=== PATIENT | female | born 1965 | race Caucasian/White ===

== ENCOUNTER → 2019-04-02 | Day surgery (SDC) | payer OTHER ==
--- NOTE | 2019-04-05 10:18 | OP ---
DATE OF OPERATION: 04/02/2019 PREOPERATIVE DIAGNOSIS: Left breast mass 11 o'clock, 9-10 cm from the nipple, and left breast mass axillary tail. POSTOPERATIVE DIAGNOSIS: Left breast mass 11 o'clock, 9-10 cm from the nipple, and left breast mass axillary tail. PROCEDURE: Left breast ultrasound-guided core biopsy x2. ANESTHESIA: Local. ESTIMATED BLOOD LOSS: Minimal. COMPLICATIONS: None. PROCEDURE: Patient was made aware of the risks and benefits of the procedure and consented. She was placed in a supine position. The left breast at the 11 o'clock position was approached first. Under sterile conditions with 1% lidocaine for local anesthesia, a small marquez was made in the skin using a 13-gauge suction biopsy device via lateral approach. Under ultrasound guidance, multiple cores were obtained and submitted to Pathology. Likewise, under ultrasound guidance, a bowtie biopsy clip was placed into the biopsy region. Well tolerated by patient. Steri-Strip and a sterile bandage were applied. The left axillary tail lesion was then approached. Under sterile conditions with 1% lidocaine for local anesthesia, a small marquez was made in the skin. Using a 13-gauge suction biopsy device via inferolateral approach under ultrasound guidance, multiple cores were obtained and submitted to Pathology. Likewise, under ultrasound guidance, a U-shaped clip was placed into the biopsy region. Well tolerated by patient. I will contact her with the results. JOSE LUIS ARMAS M.D. [id number]
--- NOTE | 2019-04-08 10:29 | PATH ---
Surgical Pathology Report Patient Name: WILBER MCDANIEL [facility]. Rec. #: [id number] /Age/Gender: 1965 (Age: 54) / F Account: [id number] Location: [facility] AMBULATORY Taken: 04/02/2019 Received: 04/05/2019 Reported: 04/08/2019 Physicians: Coleman Burton M.D. Specimen(s) Received A: LEFT BREAST CORE BIOPSY 11 N 9-10 B: LEFT BREAST CORE BIOPSY 1:00 AXILLARY TAIL Clinical History Palpable mass Ultrasound findings- highly suspicious/malignant Final Diagnosis A. BREAST, LEFT, 11 N9-10, CORE BIOPSY: INVASIVE DUCTAL CARCINOMA, POORLY DIFFERENTIATED, MEASURING AT LEAST 13 MM IN THIS MATERIAL. B. BREAST, LEFT, 1:00, AXILLARY TAIL, CORE BIOPSY: INVASIVE LOBULAR CARCINOMA, PLEOMORPHIC TYPE, MEASURING AT LEAST 11 MM IN THIS MATERIAL. Comment: Part A, The invasive carcinoma shows strong membranous positivity for E-cadherin and p120, supportive of ductal phenotype. Part B, The invasive carcinoma is positive for MINDY-3, while negative for mammaglobin consistent with mammary origin. E-cadherin is negative supportive of lobular phenotype. Results of ER, GA, Her2 (IHC) & Ki-67 studies pending and will be reported separately. Immunohistochemical stains performed and interpreted at [facility]: E-cadherin (part A). Immunohistochemical stains performed at [place], [place] ([id number]) and interpreted at [facility]: E-cadherin (part B), p120, MINDY-3. Mammaglobin. Positive and negative controls (internal if applicable) show appropriate results. Electronically Signed Marychuy Acharya M.D. Addendum Reported: 04/12/2019 Addendum Diagnosis Part A, Breast Left 11 N9-10 Results of Estrogen Receptor (ER) and Progesterone Receptor (GA) studies performed on block "1" at [facility] are as follows: ER (clone [id number] mouse monoclonal antibody by [employer]): ~99% nuclear staining with strong intensity (Positive). GA (clone16 mouse monoclonal antibody by [employer]): ~35-40% nuclear staining with moderate to strong intensity (Positive). Results of Her2 (IHC) & Ki-67 studies performed on block "1" at [place], [place] ([id number]) are as follows: Her2 IHC (EP3 from [employer], formerly known as [id number], using [place] Polymer Refine detection kit): 0-1+ (Negative). Ki-67: ~25% (Intermediate proliferative index). Part B, Breast Left, 1:00, Axillary tail Results of Estrogen Receptor (ER) and Progesterone Receptor (GA) studies performed on block "2" at [facility] are as follows: ER (clone 6F11 mouse monoclonal antibody by [employer]): ~90% nuclear staining with strong intensity (Positive). GA (clone16 mouse monoclonal antibody by [employer]): 0% nuclear staining (Negative). Results of Her2 (IHC) & Ki-67 studies performed on block "2 " at [place], [place] ([id number]) are as follows: Her2 IHC (EP3 from [employer], formerly known as [id number], using [place] Polymer Refine detection kit): 0 (Negative). Ki-67: ~35% (High proliferative index). Formalin fixation time (approximately 75-76 hrs) exceeds current ASCO/CAP recommendations for ER, GA & Her2 testing (6-72 hrs). Negative results must be interpreted with caution as false negatives may occur. Cold ischemic time is within recommended guidelines. Marychuy Acharya M.D. Gross Description A. Received in formalin labeled "left breast core, 11, N9-10" are 3 arvizu-yellow, cylindrical portions of fibroadipose tissue ranging from 1-1.5 cm in length and averaging 0.2 cm diameter. The specimens are submitted in toto in one cassette. B Received in formalin labeled "left breast core 1:00 on axillary tail" are 8 arvizu-yellow, cylindrical portions of fibroadipose tissue ranging from 0.7-1.5 cm in length and averaging 0.2 cm diameter. The specimens are submitted in toto in one cassette. Time to formalin fixation: <1 minute Total formalin fixation time: Between 75-76 hours. MLSZ/04/05/2019 pradeep04/05/2019
== END | disposition home or self-care (01) ==
LOC: FRADUS-SUR 14:35
PROVIDERS: ATTEND Surgery Surgical Oncology
PROC: 0HBU3ZX Excision of Left Breast, Percutaneous Approach, Diagnostic (ICD-10-PCS; principal; 2019-04-02)
DX: C50.212 Malignant neoplasm of upper-inner quadrant of left female breast (principal); C50.612 Malignant neoplasm of axillary tail of left female breast; N63.22 Unspecified lump in the left breast, upper inner quadrant; N63.32 Unspecified lump in axillary tail of the left breast
CPT/HCPCS: 19083; 19084; 87899; 88305-TC; 88342-TC; A4648

== ENCOUNTER 2019-05-11 09:34 | Day surgery (SDC) | payer OTHER ==
[2019-05-10 12:35] VITALS: BMI 47.2
[2019-05-11] MEDS ORDERED: MIDAZOLAM HCL 2 MG/2 ML SINGLE DOSE VIAL ONE (12:24)
[2019-05-11 14:06] VITALS: TEMP 98.4
[2019-05-11 14:31] VITALS: BP 122/59; PULSE 91
== END 2019-05-11 14:30 | disposition home or self-care (01) ==
LOC: JRADIR 09:34
PROVIDERS: ATTEND Nurse Practitioner Family
PROC: 05HM33Z Insertion of Infusion Device into Right Internal Jugular Vein, Percutaneous Approach (ICD-10-PCS; principal; 2019-05-11)
PROC: B513ZZA Fluoroscopy of Right Jugular Veins, Guidance (ICD-10-PCS; 2019-05-11)
DX: C50.912 Malignant neoplasm of unspecified site of left female breast (principal)
CPT/HCPCS: 36561; 76937; 77001; C1751; C1788

== ENCOUNTER 2019-05-12 07:15 | Day surgery (SDC) | payer OTHER ==
[2019-05-12] MEDS ORDERED: ACETAMINOPHEN 325 MG TABLET (FP) PO ONE (09:30)
[2019-05-12] MEDS ORDERED: DEXAMETHASONE SODIUM PHOSPHATE 20 MG, DIPHENHYDRAMINE 50 MG in SODIUM CHLORIDE 100 ML IVPB ONE (09:30)
[2019-05-12] MEDS ORDERED: FAMOTIDINE 20 MG/50 ML IVPB 20 MG/50 ML MG IVPB ONE (09:30)
[2019-05-12] MEDS ORDERED: PACLITAXEL IVPB ONE (10:00)
[2019-05-12] MEDS ORDERED: SODIUM CHLORIDE IVPB ONE (10:00)
[2019-05-12 10:05] LABS: BASO % 0.4 % (0-2.0); EOS % 2.9 % (0-4.5); HEMATOCRIT 32.6 % (32.4-45.2); HEMOGLOBIN 10.3 GM/dL (10.7-15.3); LYMPH % 17.9 % (8-40); MCHC 31.6 g/dl (32.0-36.0); MEAN CELL VOLUME 59.9 fl (80-96); MEAN PLT VOLUME 8.7 fl (7.5-11.1); MONO % 4.4 % (3.8-10.2); NEUT % 74.4 % (42.8-82.8); PLATELET COUNT 315 K/MM3 (134-434); RBC 5.45 M/mm3 (3.60-5.2); RDW 15.5 % (11.6-15.6); WHITE BLOOD COUNT 9.1 K/mm3 (4.0-10.0)
[2019-05-12 10:06] LABS: MCH 18.9 pg (25.7-33.7)
[2019-05-12 10:30] LABS: ALBUMIN 3.7 g/dl (3.4-5.0); BILIRUBIN,TOTAL 0.6 mg/dL (0.2-1); CALCIUM 8.7 mg/dL (8.5-10.1); CREATININE 0.9 mg/dL (0.55-1.3); MAGNESIUM 2.2 mg/dL (1.8-2.4); POTASSIUM 3.7 mmol/L (3.5-5.1); TOT PROT 7.6 g/dl (6.4-8.2)
[2019-05-12 11:14] LABS: PLATELET ESTIMATE NORMAL
[2019-05-12 14:43] VITALS: BP 109/73; PULSE 96; TEMP 98.3
[2019-05-12] MEDS ORDERED: PORTA CATH FLUSH 10 ML IVPUSH ONE (14:43)
== END 2019-05-12 14:00 | disposition home or self-care (01) ==
LOC: JONCCHEMO 07:15 → J7W 10:24 → JONCCHEMO 14:00
PROVIDERS: ATTEND Internal Medicine Hematology & Oncology
PROC: 3E04305 Introduction of Other Antineoplastic into Central Vein, Percutaneous Approach (ICD-10-PCS; principal; 2019-05-12)
PROC: 3E043GC Introduction of Other Therapeutic Substance into Central Vein, Percutaneous Approach (ICD-10-PCS; 2019-05-12)
DX: Z51.11 Encounter for antineoplastic chemotherapy (principal); C50.912 Malignant neoplasm of unspecified site of left female breast; Z17.0 Estrogen receptor positive status [ER+]
CPT/HCPCS: 36415; 80053; 83735; 85025; 96367; 96375; 96413; 96415

== ENCOUNTER 2019-05-20 05:34 | Day surgery (SDC) | payer OTHER ==
[2019-05-20] MEDS ORDERED: ACETAMINOPHEN 325 MG TABLET (FP) PO ONE (09:30)
[2019-05-20] MEDS ORDERED: DEXAMETHASONE SODIUM PHOSPHATE 12 MG, DIPHENHYDRAMINE 50 MG in SODIUM CHLORIDE 100 ML IVPB ONE (09:30)
[2019-05-20] MEDS ORDERED: FAMOTIDINE 20 MG/50 ML IVPB 20 MG/50 ML MG IVPB ONE (09:30)
[2019-05-20] MEDS ORDERED: PACLITAXEL IVPB ONE (10:00)
[2019-05-20] MEDS ORDERED: SODIUM CHLORIDE IVPB ONE (10:00)
[2019-05-20 12:11] LABS: BASO % 0.3 % (0-2.0); EOS % 2.3 % (0-4.5); HEMATOCRIT 31.1 % (32.4-45.2); HEMOGLOBIN 9.9 GM/dL (10.7-15.3); LYMPH % 18.5 % (8-40); MCHC 31.7 g/dl (32.0-36.0); MEAN CELL VOLUME 59.8 fl (80-96); MEAN PLT VOLUME 7.9 fl (7.5-11.1); MONO % 5.3 % (3.8-10.2); NEUT % 73.6 % (42.8-82.8); PLATELET COUNT 355 K/MM3 (134-434); RDW 15.2 % (11.6-15.6); WHITE BLOOD COUNT 7.8 K/mm3 (4.0-10.0)
[2019-05-20 12:47] LABS: ALBUMIN 3.6 g/dl (3.4-5.0); BILIRUBIN,TOTAL 0.5 mg/dL (0.2-1); BLOOD UREA NITROGEN 16.4 mg/dL (7-18); CREATININE 0.7 mg/dL (0.55-1.3); POTASSIUM 4.3 mmol/L (3.5-5.1); TOT PROT 7.3 g/dl (6.4-8.2)
[2019-05-20 12:55] LABS: ANISOCYTOSIS 2+; MACROCYTOSIS 0; OVALOCYTE 1+; PLATELET ESTIMATE NORMAL
[2019-05-20 15:33] VITALS: BP 113/63; PULSE 103; TEMP 98.9
== END 2019-05-20 15:39 | disposition home or self-care (01) ==
LOC: JONCCHEMO 05:34 → J7W 13:26 → JONCCHEMO 15:39
PROVIDERS: ATTEND Internal Medicine Hematology & Oncology
DX: Z51.11 Encounter for antineoplastic chemotherapy (principal); C50.912 Malignant neoplasm of unspecified site of left female breast; Z17.0 Estrogen receptor positive status [ER+]
CPT/HCPCS: 36415; 80053; 83735; 85025; 96367; 96375; 96413

== ENCOUNTER 2019-05-24 05:28 | Day surgery (SDC) | payer OTHER ==
[2019-05-24] MEDS ORDERED: FERRIC CARBOXYMALTOSE 750 MG in SODIUM CHLORIDE 250 ML IVPB ONE (11:00)
[2019-05-24 15:13] VITALS: TEMP 98.5
[2019-05-24 15:14] VITALS: BP 112/72; PULSE 100
== END 2019-05-24 11:40 | disposition home or self-care (01) ==
LOC: JONCCHEMO 05:28 → J7W 10:07 → JONCCHEMO 11:40
PROVIDERS: ATTEND Internal Medicine Hematology & Oncology
PROC: 3E033GC Introduction of Other Therapeutic Substance into Peripheral Vein, Percutaneous Approach (ICD-10-PCS; principal; 2019-05-24)
DX: D64.9 Anemia, unspecified (principal); C50.919 Malignant neoplasm of unspecified site of unspecified female breast
CPT/HCPCS: 96365; J1439

== ENCOUNTER 2019-05-26 05:36 | Day surgery (SDC) | payer OTHER ==
[2019-05-26] MEDS ORDERED: DEXAMETHASONE SODIUM PHOSPHATE 12 MG, DIPHENHYDRAMINE 50 MG in SODIUM CHLORIDE 100 ML IVPB ONE (10:00)
[2019-05-26] MEDS ORDERED: ACETAMINOPHEN 325 MG TABLET (FP) PO ONE (10:00)
[2019-05-26] MEDS ORDERED: FAMOTIDINE 20 MG/50 ML IVPB 20 MG/50 ML MG IVPB ONE (10:00)
[2019-05-26] MEDS ORDERED: SODIUM CHLORIDE IVPB ONE (10:30)
[2019-05-26] MEDS ORDERED: PACLITAXEL IVPB ONE (10:30)
[2019-05-26 10:37] LABS: BASO % 0.7 % (0-2.0); EOS % 2.6 % (0-4.5); HEMATOCRIT 30.6 % (32.4-45.2); HEMOGLOBIN 9.5 GM/dL (10.7-15.3); LYMPH % 25.4 % (8-40); MCHC 31.2 g/dl (32.0-36.0); MEAN CELL VOLUME 59.6 fl (80-96); MEAN PLT VOLUME 7.9 fl (7.5-11.1); MONO % 4.8 % (3.8-10.2); NEUT % 66.5 % (42.8-82.8); PLATELET COUNT 336 K/MM3 (134-434); RBC 5.13 M/mm3 (3.60-5.2); RDW 15.7 % (11.6-15.6); WHITE BLOOD COUNT 6.2 K/mm3 (4.0-10.0)
[2019-05-26 10:38] LABS: MCH 18.6 pg (25.7-33.7)
[2019-05-26 11:13] LABS: ALBUMIN 3.7 g/dl (3.4-5.0); BILIRUBIN,TOTAL 0.4 mg/dL (0.2-1); BLOOD UREA NITROGEN 17.7 mg/dL (7-18); CALCIUM 9.1 mg/dL (8.5-10.1); CREATININE 0.7 mg/dL (0.55-1.3); MAGNESIUM 1.9 mg/dL (1.8-2.4); TOT PROT 7.4 g/dl (6.4-8.2)
[2019-05-26 11:47] LABS: ANISOCYTOSIS 2+; MACROCYTOSIS 0; PLATELET ESTIMATE NORMAL; TEAR DROP CELLS 1+
[2019-05-26 12:09] LABS: OVALOCYTE 1+
[2019-05-26 15:01] VITALS: BP 88/67; PULSE 97; TEMP 98.3
== END 2019-05-26 14:15 | disposition home or self-care (01) ==
LOC: JONCCHEMO 05:36 → J7W 11:57 → JONCCHEMO 14:15
PROVIDERS: ATTEND Internal Medicine Hematology & Oncology
PROC: 3E04305 Introduction of Other Antineoplastic into Central Vein, Percutaneous Approach (ICD-10-PCS; principal; 2019-05-26)
PROC: 3E043GC Introduction of Other Therapeutic Substance into Central Vein, Percutaneous Approach (ICD-10-PCS; 2019-05-26)
DX: Z51.11 Encounter for antineoplastic chemotherapy (principal); C50.912 Malignant neoplasm of unspecified site of left female breast; Z17.0 Estrogen receptor positive status [ER+]; D64.9 Anemia, unspecified
CPT/HCPCS: 36415; 80053; 83735; 85025; 96367; 96413

== ENCOUNTER 2019-05-31 06:27 | Day surgery (SDC) | payer OTHER ==
[2019-05-31] MEDS ORDERED: FERRIC CARBOXYMALTOSE 750 MG in SODIUM CHLORIDE 250 ML IVPB ONE (10:00)
[2019-05-31 10:35] VITALS: PULSE 97; TEMP 98.4
[2019-05-31 14:58] VITALS: BP 99/58
== END 2019-05-31 12:00 | disposition home or self-care (01) ==
LOC: JONCNONCHE 06:27 → JONCCHEMO 06:27 → J7W 09:54 → JONCNONCHE 12:00
PROVIDERS: ATTEND Internal Medicine Hematology & Oncology
PROC: 3E033GC Introduction of Other Therapeutic Substance into Peripheral Vein, Percutaneous Approach (ICD-10-PCS; principal; 2019-05-31)
DX: E61.1 Iron deficiency (principal); C50.912 Malignant neoplasm of unspecified site of left female breast
CPT/HCPCS: 96365; J1439

== ENCOUNTER 2019-06-02 07:15 | Day surgery (SDC) | payer OTHER ==
[2019-06-02] MEDS ORDERED: ACETAMINOPHEN 325 MG TABLET (FP) PO ONE (10:00)
[2019-06-02] MEDS ORDERED: DEXAMETHASONE SODIUM PHOSPHATE 12 MG, DIPHENHYDRAMINE 50 MG in SODIUM CHLORIDE 100 ML IVPB ONE (10:00)
[2019-06-02] MEDS ORDERED: FAMOTIDINE 20 MG/50 ML IVPB 20 MG/50 ML MG IVPB ONE (10:00)
[2019-06-02] MEDS ORDERED: PACLITAXEL IVPB ONE (10:30)
[2019-06-02] MEDS ORDERED: SODIUM CHLORIDE IVPB ONE (10:30)
[2019-06-02 11:01] LABS: BASO % 0.5 % (0-2.0); EOS % 1.5 % (0-4.5); HEMATOCRIT 29.3 % (32.4-45.2); HEMOGLOBIN 9.3 GM/dL (10.7-15.3); LYMPH % 21.1 % (8-40); MCH 18.8 pg (25.7-33.7); MCHC 31.8 g/dl (32.0-36.0); MEAN PLT VOLUME 7.9 fl (7.5-11.1); MONO % 4.6 % (3.8-10.2); NEUT % 72.3 % (42.8-82.8); PLATELET COUNT 334 K/MM3 (134-434); RBC 4.97 M/mm3 (3.60-5.2); RDW 16.1 % (11.6-15.6); WHITE BLOOD COUNT 7.9 K/mm3 (4.0-10.0)
[2019-06-02 11:34] LABS: ALBUMIN 3.7 g/dl (3.4-5.0); BILIRUBIN,DIRECT 0.2 mg/dL (0.0-0.2); BILIRUBIN,TOTAL 0.5 mg/dL (0.2-1); BLOOD UREA NITROGEN 15.1 mg/dL (7-18); CALCIUM 8.7 mg/dL (8.5-10.1); CREATININE 0.7 mg/dL (0.55-1.3); MAGNESIUM 1.9 mg/dL (1.8-2.4); POTASSIUM 3.7 mmol/L (3.5-5.1); TOT PROT 7.4 g/dl (6.4-8.2)
[2019-06-02] MEDS ORDERED: DEXAMETHASONE SOD PHOSPHATE 20 MG/5 ML VIAL IVPB ONE (11:52)
[2019-06-02 11:54] LABS: ANISOCYTOSIS 1+; MACROCYTOSIS 0; PLATELET ESTIMATE NORMAL; TEAR DROP CELLS 1+
[2019-06-02] MEDS ORDERED: DEXAMETHASONE SODIUM PHOSPHATE 10 MG, DIPHENHYDRAMINE 50 MG in SODIUM CHLORIDE 100 ML IVPB ONE (12:00)
[2019-06-02] MEDS ORDERED: ONDANSETRON 4 MG/2 ML VIAL IVPB ONE (12:34)
[2019-06-02 16:49] VITALS: TEMP 99.6
[2019-06-02 16:51] VITALS: BP 112/68; PULSE 90
== END 2019-06-02 15:00 | disposition home or self-care (01) ==
LOC: JONCCHEMO 07:15 → J7W 12:06 → JONCCHEMO 15:00
PROVIDERS: ATTEND Internal Medicine Hematology & Oncology
DX: Z51.11 Encounter for antineoplastic chemotherapy (principal); C50.912 Malignant neoplasm of unspecified site of left female breast
CPT/HCPCS: 36415; 80048; 80076; 83735; 85025; 96367; 96413

== ENCOUNTER 2019-06-09 05:52 | Day surgery (SDC) | payer OTHER ==
[2019-06-09] MEDS ORDERED: ACETAMINOPHEN 325 MG TABLET (FP) PO ONE (10:00)
[2019-06-09] MEDS ORDERED: FAMOTIDINE 20 MG/50 ML IVPB 20 MG/50 ML MG IVPB ONE (10:00)
[2019-06-09] MEDS ORDERED: DEXAMETHASONE SODIUM PHOSPHATE 8 MG, DIPHENHYDRAMINE 50 MG in SODIUM CHLORIDE 100 ML IVPB ONE (10:00)
[2019-06-09] MEDS ORDERED: SODIUM CHLORIDE IVPB ONE (10:30)
[2019-06-09] MEDS ORDERED: PACLITAXEL IVPB ONE (10:30)
[2019-06-09 11:08] LABS: BASO % 0.7 % (0-2.0); EOS % 1.4 % (0-4.5); HEMATOCRIT 29.7 % (32.4-45.2); HEMOGLOBIN 9.4 GM/dL (10.7-15.3); LYMPH % 23.4 % (8-40); MCH 19.1 pg (25.7-33.7); MCHC 31.7 g/dl (32.0-36.0); MEAN CELL VOLUME 60.4 fl (80-96); MEAN PLT VOLUME 8.7 fl (7.5-11.1); MONO % 5.3 % (3.8-10.2); NEUT % 69.2 % (42.8-82.8); PLATELET COUNT 288 K/MM3 (134-434); RBC 4.92 M/mm3 (3.60-5.2); WHITE BLOOD COUNT 7.2 K/mm3 (4.0-10.0)
[2019-06-09 11:39] LABS: ALBUMIN 3.7 g/dl (3.4-5.0); BILIRUBIN,TOTAL 0.5 mg/dL (0.2-1); BLOOD UREA NITROGEN 15.9 mg/dL (7-18); CALCIUM 8.6 mg/dL (8.5-10.1); CREATININE 0.6 mg/dL (0.55-1.3); MAGNESIUM 2.1 mg/dL (1.8-2.4); POTASSIUM 3.5 mmol/L (3.5-5.1); TOT PROT 7.4 g/dl (6.4-8.2)
[2019-06-09 11:54] LABS: ANISOCYTOSIS 3+; MACROCYTOSIS 0; PLATELET ESTIMATE NORMAL; TEAR DROP CELLS 1+
[2019-06-09 11:56] LABS: ERYTHROCYTE SEDIMENTATION RATE 51 mm/hr (0-30)
[2019-06-09 16:28] VITALS: BP 135/74; PULSE 99; TEMP 98.3
[2019-06-09] MEDS ORDERED: PORTA CATH FLUSH 10 ML IVPUSH ONE (16:28)
--- NOTE | 2019-06-10 17:45 | PATH ---
Surgical Pathology Report Patient Name: WILBER MCDANIEL Med. Rec. #: [id number] /Age/Gender: 1965 (Age: 54) / F Account: [id number] Location: [facility] MED/SURG Taken: 06/09/2019 Received: 06/09/2019 Reported: 06/10/2019 Physicians: Tex Chaney M.D. Specimen(s) Received PERIPHERAL BLOOD 1 GREEN TOP Clinical History History of breast cancer, anemia Final Diagnosis COMPREHENSIVE FLOW PANEL performed and interpreted at [facility], [place], [place] ([id number]) shows the following: INTERPRETATION: GRANULOCYTES WITH MILD LEFT-SHIFT (SEE COMMENT) COMMENT: Correlate with morphologic and clinical findings for further evaluation of the significance of the observed left- shift granulocytes. PHENOTYPE: Lymphocytes include polyclonal B cells, NK cells and immunophenotypically normal T cells with an increased CD4:CD8. Granulocytes show a mild increase in immature/left-shifted forms. However, no aberrant marker expression is noted and blasts are not increased, representing 0.1% of WBCs. See [facility] report ([id number]) for additional details. Electronically Signed Rose Scott M.D. Gross Description Received is one green top tube of blood which is sent to [facility]. 06/09/2019 saudi06/09/2019
[2019-06-11 14:10] LABS: HGB SOLUBILITY Negative (Negative); Hgb C 0 % (0.0); Hgb F 0 % (0.0-2.0); Hgb S 0 % (0.0)
== END 2019-06-09 15:00 | disposition home or self-care (01) ==
LOC: JONCCHEMO 05:52 → J7W 11:46 → JONCCHEMO 15:00
PROVIDERS: ATTEND Internal Medicine Hematology & Oncology
DX: Z51.11 Encounter for antineoplastic chemotherapy (principal); C50.912 Malignant neoplasm of unspecified site of left female breast
CPT/HCPCS: 36415; 80053; 83021; 83615; 83735; 84439; 84443; 85025; 85044; 85651; 85660; 86140; 96367; 96413

== ENCOUNTER 2019-06-16 08:45 | Day surgery (SDC) | payer OTHER ==
[2019-06-16] MEDS ORDERED: DEXAMETHASONE SODIUM PHOSPHATE 8 MG, DIPHENHYDRAMINE 50 MG in SODIUM CHLORIDE 100 ML IVPB ONE (10:00)
[2019-06-16] MEDS ORDERED: ACETAMINOPHEN 325 MG TABLET (FP) PO ONE (10:00)
[2019-06-16] MEDS ORDERED: FAMOTIDINE 20 MG/50 ML IVPB 20 MG/50 ML MG IVPB ONE (10:00)
[2019-06-16] MEDS ORDERED: SODIUM CHLORIDE IVPB ONE (10:30)
[2019-06-16] MEDS ORDERED: PACLITAXEL IVPB ONE (10:30)
[2019-06-16 10:36] LABS: BASO % 0.5 % (0-2.0); EOS % 1.2 % (0-4.5); HEMATOCRIT 28.4 % (32.4-45.2); HEMOGLOBIN 8.9 GM/dL (10.7-15.3); LYMPH % 24.8 % (8-40); MCHC 31.5 g/dl (32.0-36.0); MEAN CELL VOLUME 59.9 fl (80-96); MEAN PLT VOLUME 8.5 fl (7.5-11.1); MONO % 6.2 % (3.8-10.2); NEUT % 67.3 % (42.8-82.8); PLATELET COUNT 303 K/MM3 (134-434); RBC 4.75 M/mm3 (3.60-5.2); RDW 17.2 % (11.6-15.6); WHITE BLOOD COUNT 7.2 K/mm3 (4.0-10.0)
[2019-06-16 10:41] LABS: MCH 18.8 pg (25.7-33.7)
[2019-06-16 11:04] LABS: ALBUMIN 3.7 g/dl (3.4-5.0); BILIRUBIN,TOTAL 0.6 mg/dL (0.2-1); BLOOD UREA NITROGEN 17.1 mg/dL (7-18); CALCIUM 8.8 mg/dL (8.5-10.1); CREATININE 0.6 mg/dL (0.55-1.3); POTASSIUM 3.7 mmol/L (3.5-5.1); TOT PROT 7.1 g/dl (6.4-8.2)
[2019-06-16 12:10] LABS: ANISOCYTOSIS 1+; MACROCYTOSIS 0; OVALOCYTE 1+; PLATELET ESTIMATE NORMAL; TEAR DROP CELLS 1+
[2019-06-16 16:40] VITALS: TEMP 98.6
[2019-06-16 16:42] VITALS: BP 100/66; PULSE 90
== END 2019-06-16 13:45 | disposition home or self-care (01) ==
LOC: JONCCHEMO 08:45 → J7W 10:47 → JONCCHEMO 13:45
PROVIDERS: ATTEND Internal Medicine Hematology & Oncology
PROC: 3E04305 Introduction of Other Antineoplastic into Central Vein, Percutaneous Approach (ICD-10-PCS; principal; 2019-06-16)
PROC: 3E043GC Introduction of Other Therapeutic Substance into Central Vein, Percutaneous Approach (ICD-10-PCS; 2019-06-16)
DX: Z51.11 Encounter for antineoplastic chemotherapy (principal); C50.912 Malignant neoplasm of unspecified site of left female breast; Z17.0 Estrogen receptor positive status [ER+]
CPT/HCPCS: 36415; 80053; 81257; 83735; 85025; 96367; 96368; 96413

== ENCOUNTER 2019-06-23 07:11 | Day surgery (SDC) | payer OTHER ==
[2019-06-23] MEDS ORDERED: ACETAMINOPHEN 325 MG TABLET (FP) PO ONE (09:30)
[2019-06-23] MEDS ORDERED: FAMOTIDINE 20 MG/50 ML IVPB 20 MG/50 ML MG IVPB ONE (09:30)
[2019-06-23] MEDS ORDERED: DEXAMETHASONE SODIUM PHOSPHATE 8 MG, DIPHENHYDRAMINE 50 MG in SODIUM CHLORIDE 100 ML IVPB ONE (09:30)
[2019-06-23] MEDS ORDERED: SODIUM CHLORIDE IVPB ONE (10:00)
[2019-06-23] MEDS ORDERED: PACLITAXEL IVPB ONE (10:00)
[2019-06-23 10:26] LABS: BASO % 0.6 % (0-2.0); EOS % 1.5 % (0-4.5); HEMATOCRIT 27.9 % (32.4-45.2); HEMOGLOBIN 8.8 GM/dL (10.7-15.3); LYMPH % 22.7 % (8-40); MCHC 31.6 g/dl (32.0-36.0); MEAN CELL VOLUME 59.9 fl (80-96); MEAN PLT VOLUME 8.5 fl (7.5-11.1); MONO % 5.5 % (3.8-10.2); NEUT % 69.7 % (42.8-82.8); PLATELET COUNT 282 K/MM3 (134-434); RBC 4.66 M/mm3 (3.60-5.2); RDW 18.2 % (11.6-15.6); WHITE BLOOD COUNT 6.9 K/mm3 (4.0-10.0)
[2019-06-23 10:37] LABS: MCH 18.9 pg (25.7-33.7)
[2019-06-23 10:57] LABS: ALBUMIN 3.6 g/dl (3.4-5.0); BILIRUBIN,TOTAL 0.6 mg/dL (0.2-1); BLOOD UREA NITROGEN 13.5 mg/dL (7-18); CALCIUM 8.6 mg/dL (8.5-10.1); CREATININE 0.7 mg/dL (0.55-1.3); MAGNESIUM 1.8 mg/dL (1.8-2.4); POTASSIUM 3.9 mmol/L (3.5-5.1); TOT PROT 6.8 g/dl (6.4-8.2)
[2019-06-23 12:17] LABS: ANISOCYTOSIS 2+; MACROCYTOSIS 0; PLATELET ESTIMATE NORMAL
[2019-06-23] MEDS ORDERED: DEXAMETHASONE SOD PHOSPHATE 20 MG/5 ML VIAL IVPB ONE (12:17)
[2019-06-23] MEDS ORDERED: DEXAMETHASONE SOD PHOSPHATE 4 MG/1 ML VIAL IVPB ONE (12:30)
[2019-06-23 15:47] VITALS: BP 138/95; PULSE 92; TEMP 99.1
== END 2019-06-23 14:30 | disposition home or self-care (01) ==
LOC: JONCCHEMO 07:11 → J7W 11:15 → JONCCHEMO 14:30
PROVIDERS: ATTEND Internal Medicine Hematology & Oncology
DX: Z51.11 Encounter for antineoplastic chemotherapy (principal); C50.912 Malignant neoplasm of unspecified site of left female breast; Z17.0 Estrogen receptor positive status [ER+]
CPT/HCPCS: 36415; 80053; 83735; 85025; 96367; 96375; 96413

== ENCOUNTER 2019-06-30 05:40 | Day surgery (SDC) | payer OTHER ==
[2019-06-30] MEDS ORDERED: ACETAMINOPHEN 325 MG TABLET (FP) PO ONE (09:30)
[2019-06-30] MEDS ORDERED: FAMOTIDINE 20 MG/50 ML IVPB 20 MG/50 ML MG IVPB ONE (09:30)
[2019-06-30] MEDS ORDERED: DEXAMETHASONE SODIUM PHOSPHATE 8 MG, DIPHENHYDRAMINE 50 MG in SODIUM CHLORIDE 100 ML IVPB ONE (09:30)
[2019-06-30] MEDS ORDERED: PACLITAXEL 168 MG in SODIUM CHLORIDE 250 ML IVPB ONE (10:00)
[2019-06-30 10:49] LABS: BASO % 0.6 % (0-2.0); EOS % 1.8 % (0-4.5); HEMATOCRIT 27.6 % (32.4-45.2); HEMOGLOBIN 8.7 GM/dL (10.7-15.3); LYMPH % 25.5 % (8-40); MCHC 31.5 g/dl (32.0-36.0); MEAN CELL VOLUME 60.8 fl (80-96); MEAN PLT VOLUME 7.7 fl (7.5-11.1); MONO % 5.6 % (3.8-10.2); NEUT % 66.5 % (42.8-82.8); PLATELET COUNT 294 K/MM3 (134-434); RBC 4.54 M/mm3 (3.60-5.2); RDW 18.9 % (11.6-15.6); WHITE BLOOD COUNT 6.8 K/mm3 (4.0-10.0)
[2019-06-30 10:53] LABS: MCH 19.1 pg (25.7-33.7)
[2019-06-30 11:15] LABS: ALBUMIN 3.6 g/dl (3.4-5.0); BILIRUBIN,TOTAL 0.4 mg/dL (0.2-1); BLOOD UREA NITROGEN 17.6 mg/dL (7-18); CALCIUM 8.9 mg/dL (8.5-10.1); CREATININE 0.6 mg/dL (0.55-1.3); POTASSIUM 3.5 mmol/L (3.5-5.1); TOT PROT 7.1 g/dl (6.4-8.2)
[2019-06-30 11:30] LABS: ANISOCYTOSIS 2+; MACROCYTOSIS 0; PLATELET ESTIMATE NORMAL; ROULEAU 1+; TEAR DROP CELLS 1+
[2019-06-30 17:52] VITALS: BP 130/70; PULSE 84; TEMP 98.4
[2019-06-30] MEDS ORDERED: PORTA CATH FLUSH 10 ML IVPUSH ONE (17:52)
== END 2019-06-30 15:35 | disposition home or self-care (01) ==
LOC: JONCCHEMO 05:40 → J7W 12:09 → JONCCHEMO 15:35
PROVIDERS: ATTEND Internal Medicine Hematology & Oncology
DX: Z51.11 Encounter for antineoplastic chemotherapy (principal); C50.919 Malignant neoplasm of unspecified site of unspecified female breast
CPT/HCPCS: 36415; 80053; 83735; 85025; 96367; 96413

== ENCOUNTER 2019-07-07 07:01 | Day surgery (SDC) | payer OTHER ==
[2019-07-07] MEDS ORDERED: DIPHENHYDRAMINE IVPB ONE (10:00)
[2019-07-07] MEDS ORDERED: ACETAMINOPHEN 325 MG TABLET (FP) PO ONE (10:00)
[2019-07-07] MEDS ORDERED: SODIUM CHLORIDE IVPB ONE (10:00)
[2019-07-07] MEDS ORDERED: DEXAMETHASONE SODIUM PHOSPHATE IVPB ONE (10:00)
[2019-07-07] MEDS ORDERED: FAMOTIDINE 20 MG/50 ML IVPB 20 MG/50 ML MG IVPB ONE (10:00)
[2019-07-07] MEDS ORDERED: PACLITAXEL 168 MG in SODIUM CHLORIDE 250 ML IVPB ONE (10:30)
[2019-07-07 10:45] LABS: BASO % 0.7 % (0-2.0); EOS % 1.6 % (0-4.5); HEMATOCRIT 26.4 % (32.4-45.2); HEMOGLOBIN 8.6 GM/dL (10.7-15.3); LYMPH % 22.7 % (8-40); MCHC 32.5 g/dl (32.0-36.0); MEAN CELL VOLUME 60.7 fl (80-96); MEAN PLT VOLUME 8.3 fl (7.5-11.1); MONO % 6.1 % (3.8-10.2); NEUT % 68.9 % (42.8-82.8); PLATELET COUNT 270 K/MM3 (134-434); RBC 4.35 M/mm3 (3.60-5.2); RDW 19.4 % (11.6-15.6); WHITE BLOOD COUNT 7.1 K/mm3 (4.0-10.0)
[2019-07-07 10:47] LABS: MCH 19.7 pg (25.7-33.7)
[2019-07-07 11:15] LABS: ALBUMIN 3.4 g/dl (3.4-5.0); BILIRUBIN,TOTAL 0.6 mg/dL (0.2-1); BLOOD UREA NITROGEN 11.1 mg/dL (7-18); CALCIUM 8.8 mg/dL (8.5-10.1); CREATININE 0.7 mg/dL (0.55-1.3); MAGNESIUM 1.8 mg/dL (1.8-2.4); POTASSIUM 3.4 mmol/L (3.5-5.1); TOT PROT 6.7 g/dl (6.4-8.2)
[2019-07-07] MEDS ORDERED: POTASSIUM CHLORIDE TABS 20 MEQ TABLET.ER (FP) PO ONE (11:54)
[2019-07-07 12:44] LABS: ANISOCYTOSIS 1+; MACROCYTOSIS 0; PLATELET ESTIMATE NORMAL
[2019-07-07 17:28] VITALS: BP 112/71; PULSE 85; TEMP 98.6
[2019-07-07] MEDS ORDERED: PORTA CATH FLUSH 10 ML IVPUSH ONE (17:28)
== END 2019-07-07 15:05 | disposition home or self-care (01) ==
LOC: JONCCHEMO 07:01 → J7W 11:48 → JONCCHEMO 15:05
PROVIDERS: ATTEND Internal Medicine Hematology & Oncology
DX: Z51.11 Encounter for antineoplastic chemotherapy (principal); C50.919 Malignant neoplasm of unspecified site of unspecified female breast
CPT/HCPCS: 36415; 80053; 83735; 85025; 96367; 96413

== ENCOUNTER → 2019-07-14 | Day surgery (SDC) | payer OTHER ==
[~2019-07-14] MED LIST: ACETAMINOPHEN 325 MG TABLET (FP) PO ONE; DEXAMETHASONE SODIUM PHOSPHATE IVPB ONE; DIPHENHYDRAMINE IVPB ONE; FAMOTIDINE 20 MG/50 ML IVPB 20 MG/50 ML MG IVPB ONE; PACLITAXEL 168 MG in SODIUM CHLORIDE 250 ML IVPB ONE; SODIUM CHLORIDE IVPB ONE
[2019-07-14 11:10] LABS: BASO % 0.6 % (0-2.0); EOS % 1.6 % (0-4.5); HEMATOCRIT 26.4 % (32.4-45.2); HEMOGLOBIN 8.4 GM/dL (10.7-15.3); LYMPH % 22.4 % (8-40); MCHC 31.9 g/dl (32.0-36.0); MEAN CELL VOLUME 61.3 fl (80-96); MEAN PLT VOLUME 8.7 fl (7.5-11.1); MONO % 5.2 % (3.8-10.2); NEUT % 70.2 % (42.8-82.8); PLATELET COUNT 282 K/MM3 (134-434); RBC 4.31 M/mm3 (3.60-5.2); RDW 19.1 % (11.6-15.6); WHITE BLOOD COUNT 6.9 K/mm3 (4.0-10.0)
[2019-07-14 11:12] LABS: MCH 19.6 pg (25.7-33.7)
[2019-07-14 12:57] LABS: POTASSIUM 3.5 mmol/L (3.5-5.1)
[2019-07-14 12:58] LABS: ANISOCYTOSIS 1+; PLATELET ESTIMATE NORMAL
[2019-07-14 13:00] LABS: CREATININE 0.7 mg/dL (0.55-1.3)
[2019-07-14 13:01] LABS: ALBUMIN 3.4 g/dl (3.4-5.0); BILIRUBIN,TOTAL 0.5 mg/dL (0.2-1); CALCIUM 8.7 mg/dL (8.5-10.1); TOT PROT 6.8 g/dl (6.4-8.2)
[2019-07-14 13:05] LABS: MAGNESIUM 1.8 mg/dL (1.8-2.4)
== END | disposition home or self-care (01) ==
LOC: JONCCHEMO 07:18
PROVIDERS: ATTEND Internal Medicine Hematology & Oncology
DX: Z53.8 Procedure and treatment not carried out for other reasons (principal)
CPT/HCPCS: 36415; 80053; 83735; 85025

== ENCOUNTER 2019-07-23 06:47 | Day surgery (SDC) | payer OTHER ==
[2019-07-23] MEDS ORDERED: FOSAPREPITANT DIMEGLUMINE 150 MG in SODIUM CHLORIDE 150 ML IVPB ONE (11:00)
[2019-07-23] MEDS ORDERED: PALONOSETRON HCL 0.25 MG/5 ML VIAL IVPUSH ONE (11:00)
[2019-07-23] MEDS ORDERED: DEXAMETHASONE SODIUM PHOSPHATE 12 MG in SODIUM CHLORIDE 50 ML IVPB ONE (11:00)
[2019-07-23] MEDS ORDERED: DOXORUBICIN HCL IV ONE (11:30)
[2019-07-23] MEDS ORDERED: SODIUM CHLORIDE IV ONE (11:30)
[2019-07-23] MEDS ORDERED: CYCLOPHOSPHAMIDE INJECTION 1,240 MG in SODIUM CHLORIDE 250 ML IVPB ONE (12:00)
[2019-07-23 12:14] LABS: BASO % 0.4 % (0-2.0); EOS % 1.3 % (0-4.5); HEMATOCRIT 31.5 % (32.4-45.2); HEMOGLOBIN 9.7 GM/dL (10.7-15.3); LYMPH % 18.4 % (8-40); MCHC 30.8 g/dl (32.0-36.0); MEAN CELL VOLUME 62.2 fl (80-96); MEAN PLT VOLUME 8.9 fl (7.5-11.1); MONO % 5.9 % (3.8-10.2); PLATELET COUNT 257 K/MM3 (134-434); RBC 5.06 M/mm3 (3.60-5.2)
[2019-07-23 12:15] LABS: MCH 19.2 pg (25.7-33.7)
[2019-07-23] MEDS ORDERED: SODIUM CHLORIDE 500 ML IV STA (12:34)
[2019-07-23 12:51] LABS: ALBUMIN 3.8 g/dl (3.4-5.0); BILIRUBIN,TOTAL 0.7 mg/dL (0.2-1); BLOOD UREA NITROGEN 14.7 mg/dL (7-18); CALCIUM 8.9 mg/dL (8.5-10.1); CREATININE 0.7 mg/dL (0.55-1.3); POTASSIUM 3.9 mmol/L (3.5-5.1); TOT PROT 7.4 g/dl (6.4-8.2)
[2019-07-23 14:23] LABS: ANISOCYTOSIS 1+; MACROCYTOSIS 0; PLATELET ESTIMATE NORMAL
[2019-07-23 17:50] VITALS: BP 121/69; PULSE 82; TEMP 98.1
[2019-07-23] MEDS ORDERED: PORTA CATH FLUSH 10 ML IVPUSH ONE (17:50)
== END 2019-07-23 16:55 | disposition home or self-care (01) ==
LOC: JONCCHEMO 06:47 → J7W 12:50 → JONCCHEMO 16:55
PROVIDERS: ATTEND Internal Medicine Hematology & Oncology
PROC: 3E04305 Introduction of Other Antineoplastic into Central Vein, Percutaneous Approach (ICD-10-PCS; principal; 2019-07-23)
PROC: 3E043GC Introduction of Other Therapeutic Substance into Central Vein, Percutaneous Approach (ICD-10-PCS; 2019-07-23)
PROC: 3E0437Z Introduction of Electrolytic and Water Balance Substance into Central Vein, Percutaneous Approach (ICD-10-PCS; 2019-07-23)
DX: Z51.11 Encounter for antineoplastic chemotherapy (principal); C50.912 Malignant neoplasm of unspecified site of left female breast; Z17.0 Estrogen receptor positive status [ER+]
CPT/HCPCS: 36415; 80053; 83735; 85025; 96361; 96367; 96375; 96413; 96417; J1453; J2469; J7030; J9070

== ENCOUNTER 2019-07-24 14:52 | Day surgery (SDC) | payer OTHER ==
[~2019-07-24 14:52] MED LIST changes: -ACETAMINOPHEN 325 MG TABLET (FP) PO ONE; -DEXAMETHASONE SODIUM PHOSPHATE IVPB ONE; -DIPHENHYDRAMINE IVPB ONE; -FAMOTIDINE 20 MG/50 ML IVPB 20 MG/50 ML MG IVPB ONE; -PACLITAXEL 168 MG in SODIUM CHLORIDE 250 ML IVPB ONE; +PEGFILGRASTIM-CBQV (UDENYCA) 6 MG/0.6 ML SYRINGE SQ ONE; -SODIUM CHLORIDE IVPB ONE
[2019-07-24 16:44] VITALS: BP 117/67; PULSE 74; TEMP 97.9
== END 2019-07-24 16:10 | disposition home or self-care (01) ==
LOC: JONCCHEMO 14:52 → J7W 14:52 → JONCCHEMO 16:10
PROVIDERS: ATTEND Internal Medicine Hematology & Oncology
PROC: 3E013GC Introduction of Other Therapeutic Substance into Subcutaneous Tissue, Percutaneous Approach (ICD-10-PCS; principal; 2019-07-24)
DX: C50.919 Malignant neoplasm of unspecified site of unspecified female breast (principal); Z76.89 Persons encountering health services in other specified circumstances
CPT/HCPCS: 96372; Q5111

== ENCOUNTER 2019-08-06 05:35 | Day surgery (SDC) | payer OTHER ==
[2019-08-06 11:22] LABS: BASO % 0.5 % (0-2.0); EOS % 0.8 % (0-4.5); HEMATOCRIT 32.6 % (32.4-45.2); HEMOGLOBIN 10.1 GM/dL (10.7-15.3); LYMPH % 16.1 % (8-40); MEAN CELL VOLUME 62.4 fl (80-96); MEAN PLT VOLUME 8.6 fl (7.5-11.1); MONO % 4.4 % (3.8-10.2); NEUT % 78.2 % (42.8-82.8); PLATELET COUNT 215 K/MM3 (134-434); RBC 5.22 M/mm3 (3.60-5.2); RDW 18.9 % (11.6-15.6); WHITE BLOOD COUNT 10.5 K/mm3 (4.0-10.0)
[2019-08-06 11:42] LABS: MCH 19.4 pg (25.7-33.7)
[2019-08-06 11:57] LABS: ALBUMIN 4.2 g/dl (3.4-5.0); BILIRUBIN,TOTAL 0.4 mg/dL (0.2-1); BLOOD UREA NITROGEN 21.2 mg/dL (7-18); CREATININE 0.8 mg/dL (0.55-1.3); MAGNESIUM 2.2 mg/dL (1.8-2.4); POTASSIUM 3.5 mmol/L (3.5-5.1); TOT PROT 7.8 g/dl (6.4-8.2)
[2019-08-06] MEDS ORDERED: SODIUM CHLORIDE 500 ML IV SCH (13:00)
[2019-08-06] MEDS ORDERED: FOSAPREPITANT DIMEGLUMINE 150 MG in SODIUM CHLORIDE 145 ML IVPB ONE (14:00)
[2019-08-06] MEDS ORDERED: DEXAMETHASONE INJECTION 12 MG in SODIUM CHLORIDE 50 ML IVPB ONE (14:00)
[2019-08-06] MEDS ORDERED: PALONOSETRON HCL 0.25 MG/5 ML VIAL IVPB ONE (14:00)
[2019-08-06 14:24] LABS: ANISOCYTOSIS 3+; MACROCYTOSIS 0; PLATELET ESTIMATE NORMAL
[2019-08-06] MEDS ORDERED: SODIUM CHLORIDE IV ONE (14:30)
[2019-08-06] MEDS ORDERED: DOXORUBICIN HCL IV ONE (14:30)
[2019-08-06] MEDS ORDERED: CYCLOPHOSPHAMIDE IVPB ONE (15:00)
[2019-08-06] MEDS ORDERED: [UNRECOGNIZED DRUG - OTHER] IVPB ONE (15:00)
[2019-08-06 17:42] VITALS: BP 115/70; PULSE 91; TEMP 99.2
== END 2019-08-06 18:02 | disposition home or self-care (01) ==
LOC: JONCCHEMO 05:35 → J7W 12:55 → JONCCHEMO 18:02
PROVIDERS: ATTEND Internal Medicine Hematology & Oncology
DX: Z51.11 Encounter for antineoplastic chemotherapy (principal); C50.919 Malignant neoplasm of unspecified site of unspecified female breast
CPT/HCPCS: 36415; 80053; 83735; 85025; 86850; 86900; 86901; 96361; 96367; 96375; 96413; 96417; J1100; J1453; J2469; J7030; J9070

== ENCOUNTER 2019-08-07 15:20 | Day surgery (SDC) | payer OTHER ==
[2019-08-07] MEDS ORDERED: PEGFILGRASTIM-CBQV (UDENYCA) 6 MG/0.6 ML SYRINGE SQ ONE (16:00)
[2019-08-07] MEDS ORDERED: PEGFILGRASTIM (NEULASTA) 6 MG/0.6 ML DISP.SYRIN SQ ONE (16:15)
[2019-08-07 16:29] VITALS: BP 100/66; PULSE 72; TEMP 97.3
== END 2019-08-07 16:30 | disposition home or self-care (01) ==
LOC: JONCCHEMO 15:20 → J7W 15:29 → JONCCHEMO 16:30
PROVIDERS: ATTEND Internal Medicine Hematology & Oncology
PROC: 3E013GC Introduction of Other Therapeutic Substance into Subcutaneous Tissue, Percutaneous Approach (ICD-10-PCS; principal; 2019-08-07)
DX: C50.919 Malignant neoplasm of unspecified site of unspecified female breast (principal); Z76.89 Persons encountering health services in other specified circumstances
CPT/HCPCS: 96372; Q5111

== ENCOUNTER → 2019-08-13 | Day surgery (SDC) | payer OTHER ==
[~2019-08-13] MED LIST changes: -PEGFILGRASTIM-CBQV (UDENYCA) 6 MG/0.6 ML SYRINGE SQ ONE; +SODIUM CHLORIDE 1,000 ML IV ONE
[2019-08-13 10:47] LABS: BASO % 0.9 % (0-2.0); EOS % 1.4 % (0-4.5); HEMOGLOBIN 8.9 GM/dL (10.7-15.3); LYMPH % 21.8 % (8-40); MCHC 31.9 g/dl (32.0-36.0); MEAN CELL VOLUME 61.8 fl (80-96); MEAN PLT VOLUME 9.2 fl (7.5-11.1); MONO % 1.9 % (3.8-10.2); PLATELET COUNT 175 K/MM3 (134-434); RBC 4.53 M/mm3 (3.60-5.2); RDW 17.9 % (11.6-15.6); WHITE BLOOD COUNT 2.6 K/mm3 (4.0-10.0)
[2019-08-13 10:51] LABS: MCH 19.7 pg (25.7-33.7)
[2019-08-13 11:22] LABS: ANISOCYTOSIS 1+; MACROCYTOSIS 0; OVALOCYTE 1+; PLATELET ESTIMATE NORMAL; TEAR DROP CELLS 2+
[2019-08-13 11:35] LABS: ALBUMIN 4.1 g/dl (3.4-5.0); BILIRUBIN,TOTAL 0.7 mg/dL (0.2-1); BLOOD UREA NITROGEN 19.5 mg/dL (7-18); CALCIUM 8.9 mg/dL (8.5-10.1); CREATININE 0.8 mg/dL (0.55-1.3); POTASSIUM 3.5 mmol/L (3.5-5.1); TOT PROT 7.4 g/dl (6.4-8.2)
== END | disposition home or self-care (01) ==
LOC: JONCNONCHE 07:07
PROVIDERS: ATTEND Internal Medicine Hematology & Oncology
DX: Z53.8 Procedure and treatment not carried out for other reasons (principal)
CPT/HCPCS: 36415; 80053; 85025; 86850; 86900; 86901; 96365

== ENCOUNTER 2019-08-20 11:13 | Emergency (ER) | payer OTHER ==
--- NOTE | 2019-08-20 11:18 | PDOC ---
History of Present Illness - General Stated Complaint: DIZZINESS - History of Present Illness Initial Comments: The pt is a 54F w/ a history of breast cancer on CTx, last 1 week ago, who was in clinic today where a rapid response was called. The pt was sitting discussing her care when she states she became nervous, experienced palpitations , became nauseated, almost feinted, and then vomited once. The pt was then taken to the ED. After being brought down, the pt states that she feels improved. She states this AM she felt her normal self. She denies fevers/chills, chest pain, trouble breathing, GOMEZ, vision changes, abdominal pain, or changes in strength/sensation. 08/20/19 11:17 Past History - Past Medical History Allergies/Adverse Reactions: Allergies Allergy/AdvReac Type Severity Reaction Status Date / Time No Known Allergies Allergy Verified 08/20/19 11:17 Home Medications: Ambulatory Orders Olanzapine [Zyprexa] 20 mg PO DAILY 05/10/19 Risperidone [Risperdal] 4 mg PO DAILY 05/10/19 Sertraline HCl [Zoloft] 100 mg PO DAILY 05/10/19 Anemia: No Asthma: No Cancer: Yes (breast) Cardiac Disorders: No CVA: No COPD: No CHF: No Dementia: No Diabetes: No GI Disorders: No Disorders: No HTN: No Hypercholesterolemia: No Liver Disease: No Seizures: No Thyroid Disease: No - Psycho Social/Smoking Cessation Hx Smoking History: Never smoked Have you smoked in the past 12 months: No Hx Alcohol Use: Yes (rarely) Drug/Substance Use Hx: No Substance Use Type: None, Alcohol Hx Substance Use Treatment: No Review of Systems - Review of Systems Able to Perform ROS?: Yes Comments:: GENERAL/CONSTITUTIONAL: No fever or chills HEAD, EYES, EARS, NOSE AND THROAT: No change in vision. No change in hearing. No sore throat CARDIOVASCULAR: No chest pain or shortness of breath RESPIRATORY: Denies cough, hemoptysis GASTROINTESTINAL: No diarrhea or constipation GENITOURINARY: No dysuria, frequency, or change in urination MUSCULOSKELETAL: No joint or muscle swelling or pain. No neck or back pain SKIN: No rash NEUROLOGIC: No headache, vertigo, or change in strength/sensation ENDOCRINE: No increased thirst. No abnormal weight change HEMATOLOGIC/LYMPHATIC: No anemia, easy bleeding, or history of blood clots ALLERGIC/IMMUNOLOGIC: No hives or skin allergy 08/20/19 13:18 Is the patient limited Kittitian proficient: No *Physical Exam - Vital Signs Initial Vital Signs Temp Pulse Resp BP Pulse Ox 98.0 F 70 18 100/60 100 08/20/19 11:17 08/20/19 11:17 08/20/19 11:17 08/20/19 11:17 08/20/19 11:17 08/20/19 13:18 - Physical Exam GENERAL: Awake, alert, and oriented to person/place/time, in no acute distress HEAD: No signs of trauma, normoc ephalic, atraumatic EYES: PERRLA, EOMI, sclera anicteric, conjunctiva clear ENT: Hearing grossly normal, nares patent, oropharynx clear without exudates. Moist mucosa LUNGS: No distress, speaks in full sentences, clear to auscultation bilaterally HEART: Regular rate and rhythm, normal S1 and S2, no murmurs appreciated, peripheral pulses normal and equal bilaterally ABDOMEN: Soft, protuberant, nontender, normoactive bowel sounds. No guarding, no rebound EXTREMITIES: Normal inspection, Normal range of motion, no edema. No clubbing or cyanosis NEUROLOGICAL: Cranial nerves II through XII grossly intact. Normal speech, normal gait, no focal sensorimotor deficits SKIN: Warm, Dry 08/20/19 13:19 ED Treatment Course - LABORATORY CBC & Chemistry Diagram: 08/20/19 11:34 08/20/19 11:34 - RADIOLOGY Radiology Studies Ordered: Category Date Time Status CHEST X-RAY PORTABLE* [RAD] Stat Radiology 08/20/19 11:16 Ordered Medical Decision Making - Medical Decision Making The pt is a 54F w/ a history of breast cancer on CTx, last 1 week ago, who was in clinic today where a rapid response was called likely 2/2 vasovagal near- syncope ED Course Labs sent ECG CXR ECG w/ NSR; HR 98; QTc 454; no axis deviation; no TWI, normal ECG 08/20/19 12:04 Hgb 8.9, near baseline Pt no longer feels nauseated, denies dizziness/lightheadedness Not tachycardic Case discussed with Dr. Buckley who recommends transfusion of 1u pRBC 08/20/19 12:17 Pt does not want to stay for admission but agrees to stay for the blood transfusion and to be evaluated by Dr. Buckley 08/20/19 13:19 Hypokalemia noted, will replete Other lytes unremarkable No LORRAINE LFTs wnl Trop I neg Pt to give UA 08/20/19 16:51 Note: The patient insists on leaving the emergency dept and is signing out against medical advice. The patient understands the risks and complications that may result from the refusal of medical care and admission which includes and permanent disability. The patient has the mental capacity of understanding the risks of refusing care and is capable of making an informed decision. The patient was instructed to return to the emergency department should she change her mind regarding medical care or should her condition worsen. The patient signed the Against Medical Advice form. Discharge - Discharge Information Problems reviewed: Yes Clinical Impression/Diagnosis: Near syncope Vomiting Qualifiers: Vomiting type: unspecified Vomiting Intractability: non-intractable Nausea presence: without nausea Qualified Code(s): R11.11 - Vomiting without nausea Condition: Stable Disposition: AGAINST MEDICAL ADVICE - Admission No - Follow up/Referral Referrals: Ina Mcwilliams MD [Staff Physician] - - Patient Discharge Instructions Patient Printed Discharge Instructions: DI for Syncope in Adults (Fainting) - Post Discharge Activity
[2019-08-20 11:20] VITALS: BMI 44.6
[2019-08-20 12:00] LABS: BASO % 0.6 % (0-2.0); EOS % 0.3 % (0-4.5); HEMATOCRIT 28.5 % (32.4-45.2); HEMOGLOBIN 8.9 GM/dL (10.7-15.3); LYMPH % 10.3 % (8-40); MCHC 31.1 g/dl (32.0-36.0); MEAN CELL VOLUME 63.1 fl (80-96); MEAN PLT VOLUME 8.8 fl (7.5-11.1); NEUT % 79.8 % (42.8-82.8); PLATELET COUNT 206 K/MM3 (134-434); RBC 4.52 M/mm3 (3.60-5.2); RDW 18.3 % (11.6-15.6); WHITE BLOOD COUNT 7.4 K/mm3 (4.0-10.0)
[2019-08-20 12:03] LABS: MCH 19.6 pg (25.7-33.7)
[2019-08-20 12:24] LABS: INR 1.03 (0.83-1.09); PROTHROMBIN TIME (PATIENT) 12.2 SEC (9.7-13.0)
[2019-08-20 12:26] LABS: ACTIVATED PTT 31.6 SECONDS (25.2-36.5)
[2019-08-20 12:33] LABS: ALBUMIN 3.7 g/dl (3.4-5.0); BILIRUBIN,TOTAL 0.4 mg/dL (0.2-1); BLOOD UREA NITROGEN 11.8 mg/dL (7-18); CALCIUM 8.9 mg/dL (8.5-10.1); CREATININE 0.8 mg/dL (0.55-1.3); POTASSIUM 3.3 mmol/L (3.5-5.1); TOT PROT 6.7 g/dl (6.4-8.2)
--- NOTE | 2019-08-20 12:35 | PDOC ---
Documentation entered by Tri Nielsen SCRIBE, acting as scribe for Neeraj Ventura MD. Neeraj Ventura MD: This documentation has been prepared by the Gia marks Adrianna, SCRIBE, under my direction and personally reviewed by me in its entirety. I confirm that the documentation accurately reflects all work, treatment, procedures, and medical decision making performed by me. Attending Attestation - Resident Resident Name: RodricklenAngelAbhinav - ED Attending Attestation I have performed the following: I have examined & evaluated the patient, The case was reviewed & discussed with the resident, I agree w/resident's findings & plan, Exceptions are as noted - HPI HPI: The patient is a 54 year old female, with a significant PMH of breast CA, who presents to the ED for evaluation of near syncopal event. Pt states she was in her USOH this morning. She reports feeling very anxious prior to arriving to hospital, and while getting blood drawn, suddenly began to feel lightheaded. Pt also had nausea and one episode of emesis. This lasted several minutes before pt returned to baseline. She currently denies any nausea, denies abdominal pain or diarrhea. Rapid response was called, and pt was found to be tachycardic and hypotensive, though vitals normalized in the ED without intervention. Pt notes that she has nightly chills since initiating chemo, but she denies any fevers. Pt does not have any complaints at this time. Allergies: NKA, NKDA Surgical History: None reported Social History: Denies EtOH, tobacco, or illicit drug use ONC: Dr. Buckley - Physicial Exam PE: "GENERAL: Awake, alert, and fully oriented, in no acute distress. HEAD: No signs of trauma EYES: PERRLA, EOMI, sclera anicteric, conjunctiva clear ENT: Auricles normal inspection, hearing grossly normal, nares patent, oropharynx clear without exudates. Moist mucosa NECK: Nontender, no stepoffs, Normal ROM, supple, no lymphadenopathy, JVD, or masses LUNGS: Breath sounds equal, clear to auscultation bilaterally. No wheezes, and no crackles HEART: Regular rate and rhythm, normal S1 and S2, no murmurs, rubs or gallops ABDOMEN: Soft, nontender, normoactive bowel sounds. No guarding, no rebound. No masses EXTREMITIES: Normal range of motion, no edema. No clubbing or cyanosis. No cords, erythema, or tenderness NEUROLOGICAL: Cranial nerves II through XII intact. 5/5 strength and sensation in all extremities, Normal speech, normal gait, normal cerebellar function SKIN: Warm, Dry, normal turgor, no rashes or lesions noted." - Medical Decision Making 08/20/19 12:38 54 F with near-syncopal episode. Suspect vasovagal. Will evaluate for infectious process. EKG without evidence of arrhythmia or ischemia. Pt also has h/o anemia, possible symptomatic anemia. - Labs, cultures - CXR, UA - IVF 08/20/19 12:[address] Buckley, who agrees with plan to obtain blood cultures for sepsis rule out. Also recommends blood transfusion given pt's h/o anemia. Plan discussed with pt, who consents to transfusion. However, pt and aunt are adamant about not staying in the hospital tonight. Will likely sign out AMA. 08/20/19 16:[address] Buckley, who reiterated recommendation for admission. However, pt still does not wish to stay. The patient is clinically sober, free from distracting injury, appears to have intact insight and judgment and reason and in my opinion has the capacity to make decisions. The patient presented with presyncope. I have explained that I am concerned that this may represent an infection; they have verbalized an understanding of my concerns. I have told the patient that while their labs were normal, they could still have an infection. I have told the patient that if they leave, they could get much worse, could become critically ill, and could possibly become disabled or . I have asked them to stay in the hospital for admission and monitoring. I have discussed these concerns with the patients aunt who is at the bedside and she is unable to convince them to stay for further evaluation. She is refusing any further care and is leaving against medical advice. I am unable to convince the patient to stay, I have asked them to return as soon as possible to complete their evaluation. I have spoken with Dr. Buckley with regards to this case. I have answered all their questions.
--- NOTE | 2019-08-20 13:46 | EKG ---
Test Reason : Blood Pressure : / mmHG Vent. Rate : 098 BPM Atrial Rate : 098 BPM P-R Int : 130 ms QRS Dur : 080 ms QT Int : 356 ms P-R-T Axes : 020 019 038 degrees QTc Int : 454 ms NORMAL SINUS RHYTHM NORMAL ECG NO PREVIOUS ECGS AVAILABLE Confirmed by ALANA LAWRECNE MD ([id number]) on 08/20/2019 1:46:05 PM Referred By: Confirmed By:ALANA LAWRENCE MD
[2019-08-20 14:17] LABS: ANISOCYTOSIS 1+; MACROCYTOSIS 0; OVALOCYTE 1+; PLATELET ESTIMATE NORMAL; TEAR DROP CELLS 1+
[2019-08-20 16:47] VITALS: BP 131/68; PULSE 99; TEMP 99.1
[2019-08-20] MEDS ORDERED: POTASSIUM CHLORIDE TABS 20 MEQ TABLET.ER (FP) PO ONE ×2 (16:50→16:58)
[2019-08-20 17:38] LABS: EPI CELLS 30.3 /HPF (0-5/HPF); HYALINE CASTS 15 /lpf (0-8); URINE APPEARANCE TURBID; URINE BACTERIA 2045.3 /hpf (NEGATIVE); URINE BILIRUBIN NEGATIVE (NEGATIVE); URINE COLOR YELLOW; URINE GLUCOSE (UA) NEGATIVE (NEGATIVE); URINE KETONE NEGATIVE (NEGATIVE); URINE LEUK ESTERASE 2+ (NEGATIVE); URINE NITRITE NEGATIVE (NEGATIVE); URINE PROTEIN NEGATIVE (NEGATIVE); URINE UROBILINOGEN 0.2 mg/dL (0.2-1.0); URINE WBC 301 /hpf (0-5)
== END 2019-08-20 17:03 | disposition left against medical advice (07) ==
LOC: JER 11:13
DX: R55 Syncope and collapse (principal); R11.11 Vomiting without nausea; Z85.3 Personal history of malignant neoplasm of breast
CPT/HCPCS: 36415; 36430; 71045-TC-FY; 80053; 81003; 83735; 84439; 84443; 84484; 85025; 85610; 85730; 86850; 86900; 86901; 86922; 87040; 87086; 93005; 93010; 96365; 99284-25; P9058

== ENCOUNTER 2019-08-25 07:09 | Day surgery (SDC) | payer OTHER ==
[2019-08-25 11:01] LABS: BASO % 0.6 % (0-2.0); EOS % 0.6 % (0-4.5); HEMATOCRIT 30.5 % (32.4-45.2); HEMOGLOBIN 9.8 GM/dL (10.7-15.3); LYMPH % 21.9 % (8-40); MCH 20.7 pg (25.7-33.7); MCHC 32.1 g/dl (32.0-36.0); MEAN CELL VOLUME 64.6 fl (80-96); MEAN PLT VOLUME 9.4 fl (7.5-11.1); MONO % 8.2 % (3.8-10.2); NEUT % 68.7 % (42.8-82.8); PLATELET COUNT 157 K/MM3 (134-434); RBC 4.72 M/mm3 (3.60-5.2); RDW 20.4 % (11.6-15.6); WHITE BLOOD COUNT 4.5 K/mm3 (4.0-10.0)
[2019-08-25] MEDS ORDERED: SODIUM CHLORIDE 500 ML IV STA (11:10)
[2019-08-25 11:38] LABS: ALBUMIN 3.7 g/dl (3.4-5.0); BILIRUBIN,TOTAL 0.4 mg/dL (0.2-1); BLOOD UREA NITROGEN 13.5 mg/dL (7-18); CALCIUM 8.3 mg/dL (8.5-10.1); CREATININE 0.7 mg/dL (0.55-1.3); POTASSIUM 3.9 mmol/L (3.5-5.1); TOT PROT 6.8 g/dl (6.4-8.2)
[2019-08-25] MEDS ORDERED: PALONOSETRON HCL 0.25 MG/5 ML VIAL IVPUSH ONE (11:45)
[2019-08-25] MEDS ORDERED: FOSAPREPITANT DIMEGLUMINE 150 MG in SODIUM CHLORIDE 145 ML IVPB ONE (12:30)
[2019-08-25] MEDS ORDERED: DEXAMETHASONE INJECTION 12 MG in SODIUM CHLORIDE 50 ML IVPB ONE (12:30)
[2019-08-25] MEDS ORDERED: DOXORUBICIN HCL IV ONE (13:00)
[2019-08-25] MEDS ORDERED: SODIUM CHLORIDE IV ONE (13:00)
[2019-08-25] MEDS ORDERED: CYCLOPHOSPHAMIDE INJECTION 1,220 MG in SODIUM CHLORIDE 250 ML IVPB ONE (13:30)
[2019-08-25 14:20] LABS: ANISOCYTOSIS 1+; MACROCYTOSIS 0; OVALOCYTE 1+; PLATELET ESTIMATE DECREASED; TARGET CELLS 1+; TEAR DROP CELLS 1+
[2019-08-25 16:35] VITALS: BP 103/63; PULSE 85; TEMP 97.7
[2019-08-25] MEDS ORDERED: PORTA CATH FLUSH 10 ML IVPUSH ONE (16:35)
[2019-08-25 17:28] LABS: EPI CELLS 6.8 /HPF (0-5/HPF); HYALINE CASTS 16 /lpf (0-8); URINE APPEARANCE CLEAR; URINE BACTERIA 14.3 /hpf (NEGATIVE); URINE BILIRUBIN NEGATIVE (NEGATIVE); URINE COLOR ORANGE; URINE GLUCOSE (UA) NEGATIVE (NEGATIVE); URINE KETONE TRACE (NEGATIVE); URINE LEUK ESTERASE 1+ (NEGATIVE); URINE NITRITE POSITIVE (NEGATIVE); URINE PROTEIN NEGATIVE (NEGATIVE); URINE RBC 1 /hpf (0-4); URINE UROBILINOGEN 0.2 mg/dL (0.2-1.0); URINE WBC 8 /hpf (0-5)
== END 2019-08-25 15:45 | disposition home or self-care (01) ==
LOC: JONCCHEMO 07:09 → J7W 11:56 → JONCCHEMO 15:45
PROVIDERS: ATTEND Internal Medicine Hematology & Oncology
DX: Z51.11 Encounter for antineoplastic chemotherapy (principal); C50.919 Malignant neoplasm of unspecified site of unspecified female breast
CPT/HCPCS: 36415; 80053; 81003; 83735; 85025; 87086; 87186; 96361; 96367; 96375; 96413; 96417; J1100; J1453; J2469; J9070

== ENCOUNTER 2019-08-27 07:12 | Day surgery (SDC) | payer OTHER ==
[2019-08-27] MEDS ORDERED: PEGFILGRASTIM-CBQV (UDENYCA) 6 MG/0.6 ML SYRINGE SQ ONE (10:00)
[2019-08-27] MEDS ORDERED: SODIUM CHLORIDE 500 ML IV ONE (10:30)
[2019-08-27 11:11] VITALS: BP 106/67; PULSE 76; TEMP 98.1
[2019-08-27] MEDS ORDERED: PORTA CATH FLUSH 10 ML IVPUSH ONE (11:29)
== END 2019-08-27 12:10 | disposition home or self-care (01) ==
LOC: JONCCHEMO 07:12 → J7W 09:53 → JONCCHEMO 12:10
PROVIDERS: ATTEND Internal Medicine Hematology & Oncology
PROC: 3E013GC Introduction of Other Therapeutic Substance into Subcutaneous Tissue, Percutaneous Approach (ICD-10-PCS; principal; 2019-08-27)
DX: C50.919 Malignant neoplasm of unspecified site of unspecified female breast (principal); Z76.89 Persons encountering health services in other specified circumstances
CPT/HCPCS: 96372; Q5111

== ENCOUNTER 2019-09-08 05:45 | Day surgery (SDC) | payer OTHER ==
[2019-09-08] MEDS ORDERED: FOSAPREPITANT DIMEGLUMINE 150 MG in SODIUM CHLORIDE 145 ML IVPB ONE (09:30)
[2019-09-08] MEDS ORDERED: PALONOSETRON HCL 0.25 MG/5 ML VIAL IVPUSH ONE (09:30)
[2019-09-08] MEDS ORDERED: DEXAMETHASONE SODIUM PHOSPHATE 12 MG in SODIUM CHLORIDE 50 ML IVPB ONE (09:30)
[2019-09-08] MEDS ORDERED: DOXORUBICIN HCL IV ONE (10:00)
[2019-09-08] MEDS ORDERED: SODIUM CHLORIDE IV ONE (10:00)
[2019-09-08] MEDS ORDERED: CYCLOPHOSPHAMIDE INJECTION 1,220 MG in SODIUM CHLORIDE 250 ML IVPB ONE (10:30)
[2019-09-08 11:18] LABS: BASO % 0.4 % (0-2.0); EOS % 0.8 % (0-4.5); HEMATOCRIT 27.2 % (32.4-45.2); HEMOGLOBIN 8.6 GM/dL (10.7-15.3); LYMPH % 8.6 % (8-40); MCH 20.5 pg (25.7-33.7); MCHC 31.8 g/dl (32.0-36.0); MEAN CELL VOLUME 64.3 fl (80-96); MEAN PLT VOLUME 8.4 fl (7.5-11.1); MONO % 5.5 % (3.8-10.2); NEUT % 84.7 % (42.8-82.8); PLATELET COUNT 177 K/MM3 (134-434); RBC 4.22 M/mm3 (3.60-5.2); RDW 20.5 % (11.6-15.6); WHITE BLOOD COUNT 11.9 K/mm3 (4.0-10.0)
[2019-09-08] MEDS ORDERED: SODIUM CHLORIDE 500 ML IV SCH (11:30)
[2019-09-08 11:55] LABS: ALBUMIN 3.6 g/dl (3.4-5.0); BILIRUBIN,TOTAL 0.6 mg/dL (0.2-1); CALCIUM 9.1 mg/dL (8.5-10.1); CREATININE 0.6 mg/dL (0.55-1.3); POTASSIUM 3.9 mmol/L (3.5-5.1); TOT PROT 6.9 g/dl (6.4-8.2)
[2019-09-08 11:58] LABS: ANISOCYTOSIS 1+; MACROCYTOSIS 0; PLATELET ESTIMATE NORMAL
[2019-09-08 16:45] VITALS: TEMP 99
[2019-09-08 18:01] VITALS: BP 110/70; PULSE 83
[2019-09-08] MEDS ORDERED: PORTA CATH FLUSH 10 ML IVPUSH ONE (18:01)
== END 2019-09-08 16:20 | disposition home or self-care (01) ==
LOC: JONCCHEMO 05:45 → J7W 11:53 → JONCCHEMO 16:20
PROVIDERS: ATTEND Internal Medicine Hematology & Oncology
PROC: 3E04305 Introduction of Other Antineoplastic into Central Vein, Percutaneous Approach (ICD-10-PCS; principal; 2019-09-08)
PROC: 3E043GC Introduction of Other Therapeutic Substance into Central Vein, Percutaneous Approach (ICD-10-PCS; 2019-09-08)
PROC: 3E0437Z Introduction of Electrolytic and Water Balance Substance into Central Vein, Percutaneous Approach (ICD-10-PCS; 2019-09-08)
DX: Z51.11 Encounter for antineoplastic chemotherapy (principal); C50.919 Malignant neoplasm of unspecified site of unspecified female breast; Z17.0 Estrogen receptor positive status [ER+]
CPT/HCPCS: 36415; 80053; 85025; 96361; 96367; 96375; 96413; 96417; J1453; J2469; J7030; J9070

== ENCOUNTER 2019-09-10 05:21 | Day surgery (SDC) | payer OTHER ==
[2019-09-10] MEDS ORDERED: PEGFILGRASTIM-CBQV (UDENYCA) 6 MG/0.6 ML SYRINGE SQ ONE (10:00)
[2019-09-10] MEDS ORDERED: clonazePAM 0.5 MG TABLET PO ONE (10:55)
[2019-09-10] MEDS ORDERED: SODIUM CHLORIDE 500 ML IV STA (10:57)
[2019-09-10 11:00] LABS: BASO % 0.3 % (0-2.0); EOS % 0.3 % (0-4.5); HEMATOCRIT 26.8 % (32.4-45.2); HEMOGLOBIN 8.5 GM/dL (10.7-15.3); LYMPH % 12.4 % (8-40); MCH 20.6 pg (25.7-33.7); MCHC 31.8 g/dl (32.0-36.0); MEAN PLT VOLUME 9.2 fl (7.5-11.1); MONO % 3.8 % (3.8-10.2); NEUT % 83.2 % (42.8-82.8); PLATELET COUNT 164 K/MM3 (134-434); RBC 4.13 M/mm3 (3.60-5.2); RDW 20.2 % (11.6-15.6)
[2019-09-10 11:27] LABS: ALBUMIN 3.5 g/dl (3.4-5.0); BILIRUBIN,TOTAL 0.4 mg/dL (0.2-1); BLOOD UREA NITROGEN 19.2 mg/dL (7-18); CALCIUM 8.6 mg/dL (8.5-10.1); CREATININE 0.7 mg/dL (0.55-1.3); POTASSIUM 3.5 mmol/L (3.5-5.1); TOT PROT 6.5 g/dl (6.4-8.2)
[2019-09-10 17:51] VITALS: BP 105/69; PULSE 96; TEMP 98.1
[2019-09-10] MEDS ORDERED: PORTA CATH FLUSH 10 ML IVPUSH ONE (17:51)
== END 2019-09-10 17:25 | disposition home or self-care (01) ==
LOC: JONCCHEMO 05:21 → J7W 09:54 → JONCCHEMO 17:25
PROVIDERS: ATTEND Internal Medicine Hematology & Oncology
PROC: 3E0437Z Introduction of Electrolytic and Water Balance Substance into Central Vein, Percutaneous Approach (ICD-10-PCS; principal; 2019-09-10)
PROC: 3E043GC Introduction of Other Therapeutic Substance into Central Vein, Percutaneous Approach (ICD-10-PCS; 2019-09-10)
DX: Z76.89 Persons encountering health services in other specified circumstances (principal); C50.919 Malignant neoplasm of unspecified site of unspecified female breast; Z17.0 Estrogen receptor positive status [ER+]
CPT/HCPCS: 36415; 36430; 80053; 85025; 86850; 86900; 86901; 86922; 96360; 96361; 96372; P9038; P9058; Q5111

== ENCOUNTER → 2020-11-08 | Day surgery (SDC) | payer OTHER ==
[2020-11-08 13:32] LABS: BASO % 0.7 % (0-2.0); EOS % 1.3 % (0-4.5); HEMATOCRIT 33.3 % (32.4-45.2); HEMOGLOBIN 10.5 GM/dL (10.7-15.3); LYMPH % 13.4 % (8-40); MCH 21.5 pg (25.7-33.7); MCHC 31.6 g/dl (32.0-36.0); MEAN CELL VOLUME 67.8 fl (80-96); MEAN PLT VOLUME 7.6 fl (7.5-11.1); MONO % 6.1 % (3.8-10.2); NEUT % 78.5 % (42.8-82.8); PLATELET COUNT 225 K/MM3 (134-434); RBC 4.91 M/mm3 (3.60-5.2); RDW 16.2 % (11.6-15.6); WHITE BLOOD COUNT 4.8 K/mm3 (4.0-10.0)
[2020-11-08 13:44] LABS: INR 1.02 (0.83-1.09); PROTHROMBIN TIME (PATIENT) 12.5 SEC (9.7-13.0)
[2020-11-08 15:07] LABS: ANISOCYTOSIS 2+; MACROCYTOSIS 0; PLATELET ESTIMATE NORMAL
== END ==
LOC: JRADIR 12:10
PROVIDERS: ATTEND Internal Medicine Hematology & Oncology
DX: Z85.3 Personal history of malignant neoplasm of breast (principal)
CPT/HCPCS: 36415; 36590; 85025; 85610

== ENCOUNTER 2023-03-28 09:48 | Emergency (ER) | payer OTHER ==
[2023-03-28 10:09] VITALS: BP 130/67; PULSE 67; RESP 16; TEMP 98.1; BMI 45.3
[2023-03-28 11:01] LABS: ALBUMIN 4.1 g/dl (3.4-5.0); BLOOD UREA NITROGEN 21.1 mg/dl (7-18); CALCIUM 8.9 mg/dl (8.5-10.1); CREATININE 0.7 mg/dl (0.6-1.3); HEMATOCRIT 29.9 % (32.4-45.2); HEMOGLOBIN 9.1 G/dL (10.7-15.3); MAGNESIUM 1.7 mg/dL (1.8-2.4); MCH 20.7 pg (25.7-33.7); MCHC 30.5 g/dl (32.0-36.0); MEAN CELL VOLUME 67.8 fl (80-96); MEAN PLT VOLUME 8.5 fl (7.5-11.1); PHOSPHOROUS 3.25 (2.5-4.9); PLATELET COUNT 179.6 10^3/uL (134-434); POTASSIUM 3.8 mmol/L (3.5-5.1); RBC 4.41 10^6/uL (3.60-5.2); RDW 19.2 % (11.6-15.6); SGOT/AST 14.1 U/L (15-37); SGPT/ALT 14.6 U/L (7-52); TOT PROT 6.7 g/dl (6.4-8.2); WHITE BLOOD COUNT 3.1 10^3/uL (4.0-10.8)
[2023-03-28 11:04] LABS: PLATELET ESTIMATE ADEQUATE
[2023-03-28 12:23] LABS: EPITHELIAL CELLS MANY /hpf
[2023-03-28 14:54] LABS: BILIRUBIN,TOTAL 0.4 mg/dL (0.2-1)
== END 2023-03-28 11:35 | disposition home or self-care (01) ==
LOC: FER 09:48
DX: E87.1 Hypo-osmolality and hyponatremia (principal); R35.0 Frequency of micturition
CPT/HCPCS: 36415; 80053; 81003; 81015; 82436; 83735; 84100; 84133; 84300; 85027; 87086; 87186; 99283-25